=== PATIENT | male | born 1960 | race Caucasian/White ===

== ENCOUNTER 2018-09-16 01:28 | Emergency (ER) | payer OTHER ==
[2018-09-16 01:36] VITALS: BP 162/98
[2018-09-16] MEDS ORDERED: DIAZEPAM 5 MG PREPACK#4 BTL TAKEHOME ONE (02:09)
--- NOTE | 2018-09-16 02:10 | EDPHY ---
H & P Stated Complaint: neck pain/YANEZ x1 days Time Seen by Provider: 09/16/18 01:56 HPI/ROS: HPI The patient presents with neck pain which is chronic for the last several years for which he takes oxycodone prescribed by his primary care doctor. It sounds as if he has a pain contract with her. He ran out of his pain medication yesterday and is not due for refill until after the weekend. His pain is the usual aching which radiates toward his occiput which is moderate in severity. REVIEW OF SYSTEMS 10 systems were reviewed and negative with the exception of the elements mentioned in the history of present illness. PMHx: Chronic cervical neck pain Soc Hx: Housed PHYSICAL General Appearance: Alert, no distress Eyes: Pupils equal and round no pallor or injection ENT, Mouth: Mucous membranes moist Respiratory: Breathing comfortably Neurological: A&O, moves all extremities Skin: Warm and dry, no rashes Musculoskeletal: Neck is supple non tender Extremities: symmetrical, full range of motion Psychiatric: Patient is oriented X 3, there is no agitation Source: Patient Exam Limitations: No limitations - Personal History Current Tetanus/Diphtheria Vaccine: Yes - Medical/Surgical History Hx Asthma: No Hx Chronic Respiratory Disease: No Hx Diabetes: No Hx Cardiac Disease: No Hx Renal Disease: No Hx Cirrhosis: No Hx Alcoholism: No Hx HIV/AIDS: No Hx Splenectomy or Spleen Trauma: No Other PMH: chronic neck pain, migraines - Social History Smoking Status: Never smoked Constitutional: Initial Vital Signs Temperature (C) 36.8 C 09/16/18 01:31 Heart Rate 113 H 09/16/18 01:31 Respiratory Rate 18 09/16/18 01:31 Blood Pressure 162/98 H 09/16/18 01:31 O2 Sat (%) 98 09/16/18 01:31 O2 Delivery Mode Room Air Allergies/Adverse Reactions: No Known Allergies Allergy (Verified 09/16/18 01:34) Home Medications: Medication Instructions Recorded Oxycodone Ir [Oxy Ir 5 mg (RX)] 1 tab PO QIDPRN PRN #15 tab 01/08/10 Medical Decision Making Differential Diagnosis: 58-year-old male with chronic neck pain presents with worsening neck pain in the setting of running out of his opiate pain medication prescribed by his primary care doctor. He has no red flag features such as fever or paresthesias. I suspect his pain could be written due to opiate withdrawal. I have explained this to him and told him I cannot prescribe him pain medication through the emergency department. He will need to contact his PMD. I will give him some Valium for tonight to help with any muscle spasm. - Data Points Medications Given: Discontinued Medications Diazepam (Valium 5 Mg Prepack#4) 1 btl TAKEHOME EDNOW ONE Stop: 09/16/18 02:10 Last Admin: 09/16/18 02:14 Dose: 1 btl Departure - Departure Disposition: Home, Routine, Self-Care Clinical Impression: Neck pain Condition: Good Instructions: Diazepam (By mouth), Cervical Strain (ED) Additional Instructions: We cannot prescribe opiate pain medications from the emergency department for patients who take these medications chronically. You need to contact her primary care doctor to let her know about your pain. Referrals: Varsha Driscoll MD [Primary Care Provider] - As per Instructions
== END 2018-09-16 02:16 | disposition home or self-care (01) ==
DX: M54.2 Cervicalgia (principal)